=== PATIENT | male | born 1955 | race Caucasian/White ===

== ENCOUNTER 2016-08-30 16:17 | Emergency (ER) | payer OTHER ==
[2016-08-30] MEDS ORDERED: Clindamycin Phosphate 900 MG in Sodium Chloride 0.9% 100 ML IV ONE (16:35)
[2016-08-30] MEDS ORDERED: Iopamidol 612 MG/ML 100 ML Bottle IVPUSH ONE (16:35)
[2016-08-30] MEDS ORDERED: Sodium Chloride 0.9% 1,000 ML IV ONE (16:35)
[2016-08-30] MEDS ORDERED: Dexamethasone 4 MG/ML SDV IVPUSH ONE (16:37)
[2016-08-30] MEDS: Sodium Chloride 0.9% 10 ML Syringe FLUSH PRN ×2 (16:49→17:06)
--- NOTE | 2016-08-30 16:55 | EDM.PDOC ---
ED HPI GENERAL MEDICAL PROBLEM - General Chief Complaint: ENT Problem Stated Complaint: SENT BY [facility] Time Seen by Provider: 08/30/16 16:33 Source of Information: Reports: Patient History Limitations: Reports: No Limitations - History of Present Illness INITIAL COMMENTS - FREE TEXT/NARRATIVE: The patient is a 61-year-old male who presents with swelling in the neck/mouth area, just under the chin. He states that he had a dental procedure a few days ago. He didn't have trouble after this. However today he's had worsening swelling in his neck area right underneath his chin. This is quite uncomfortable. He doesn't have any definite pain or difficulty with swallowing or swelling inside the mouth or the throat. No fever. No history of similar symptoms. No additional complaint. No difficulty breathing at this time. - Related Data Allergies Allergy/AdvReac Type Severity Reaction Status Date / Time No Known Allergies Allergy Verified 08/30/16 16:25 Home Meds: Home Meds Amoxicillin. 08/30/16 [History] Past Medical History - Past Surgical History Musculoskeletal Surgical History: Reports: Other (See Below) Other Musculoskeletal Surgeries/Procedures:: pLate in left leg Social & Family History - Family History Family Medical History: Noncontributory - Tobacco Use Smoking Status *Q: Current Some Day Smoker Years of Tobacco use: 10 Packs/Tins Daily: 0.1 - Caffeine Use Caffeine Use: Reports: None - Recreational Drug Use Recreational Drug Use: No ED ROS ENT - Review of Systems Review Of Systems: See Below Constitutional: Denies: Fever HEENT: Reports: Other (neck swelling) Respiratory: Denies: Cough Cardiovascular: Denies: Chest Pain GI/Abdominal: Denies: Vomiting Musculoskeletal: Reports: Neck Pain Skin: Reports: No Symptoms Neurological: Reports: No Symptoms ED EXAM, ENT - Physical Exam Exam: See Below Exam Limited By: No Limitations General Appearance: Alert, WD/WN, No Apparent Distress Eye Exam: Bilateral Eye: Normal Inspection Ears: Normal External Exam Nose: Normal Inspection Mouth/Throat: Other (Marked fullness/tenderness in submandibular area, skin intact, slightly boggy). No: Dental Abcess, Gum Swelling, Peritonsillar Mass, Throat Swelling, Tonsillar Erythema Head: Atraumatic, Normocephalic Neck: Supple, Full Range of Motion, Other (marked fullness/TTP in submandibular area) Respiratory/Chest: No Respiratory Distress, Lungs Clear, Normal Breath Sounds, No Accessory Muscle Use Cardiovascular: Normal Peripheral Pulses, Regular Rate, Rhythm, No Murmur GI/Abdominal: Soft, Non-Tender Neurological: Alert, Oriented, Normal Cognition, No Motor/Sensory Deficits Psychiatric: Normal Affect, Normal Mood Skin: Warm, Dry, Intact, Normal Color, No Rash Course - Vital Signs Last Recorded V/S: Last Vital Signs Temp 37.1 C 08/30/16 19:23 Pulse 97 08/30/16 19:23 Resp 18 08/30/16 19:23 BP 144/74 H 08/30/16 19:23 Pulse Ox 97 08/30/16 19:23 - Orders/Labs/Meds Orders: Active Orders 24 hr Category Date Time Status CULTURE BLOOD [BC] Stat Lab 08/30/16 17:14 Received CULTURE BLOOD [BC] Stat Lab 08/30/16 17:25 Received Blood Culture x2 Reflex Set [OM.PC] Stat Oth 08/30/16 16:36 Ordered Labs: Laboratory Tests 08/30/16 08/30/16 Range/Units 16:31 16:31 WBC 22.31 H (4.23-9.07) K/mm3 RBC 4.67 (4.63-6.08) M/mm3 Hgb 14.6 (13.7-17.5) gm/L Hct 43.1 (40.1-51.0) % MCV 92.3 H (79.0-92.2) fl MCH 31.3 (25.7-32.2) pg MCHC 33.9 (32.2-35.5) g/dl RDW Std Deviation 45.2 H (35.1-43.9) fL Plt Count 252 (163-337) K/mm3 MPV 9.5 (9.4-12.3) fl Neut % (Auto) 86.5 H (34.0-67.9) % Lymph % (Auto) 4.9 L (21.8-53.1) % Teller % (Auto) 8.1 (5.3-12.2) % Eos % (Auto) 0.1 L (0.8-7.0) Baso % (Auto) 0.1 (0.1-1.2) % Neut # (Auto) 19.29 H (1.78-5.38) K/mm3 Lymph # (Auto) 1.09 L (1.32-3.57) K/mm3 Teller # (Auto) 1.80 H (0.30-0.82) K/mm3 Eos # (Auto) 0.03 L (0.04-0.54) K/mm3 Baso # (Auto) 0.03 (0.01-0.08) K/mm3 Manual Slide Review Abnormal smear Sodium 137 (136-145) mEq/L Potassium 3.8 (3.5-5.1) mEq/L Chloride 103 (98-107) mEq/L Carbon Dioxide 27 (21-32) mEq/L Anion Gap 10.8 (5-15) BUN 15 (7-18) mg/dL Creatinine 1.3 (0.7-1.3) mg/dL Est Cr Clr Drug Dosing 65.50 mL/min Estimated GFR (MDRD) 56 (>60) mL/min BUN/Creatinine Ratio 11.5 L (14-18) Glucose 117 H (80-115) mg/dL Calcium 9.0 (8.5-10.1) mg/dL Total Bilirubin 0.9 (0.2-1.0) mg/dL AST 27 (15-37) U/L ALT 37 (16-63) U/L Alkaline Phosphatase 136 H (46-116) U/L Total Protein 7.7 (6.4-8.2) g/dl Albumin 4.0 (3.4-5.0) g/dl Globulin 3.7 gm/dL Albumin/Globulin Ratio 1.1 (1-2) Meds: Medications Discontinued Medications Generic Name Dose Route Start Last Admin Trade Name Freq PRN Reason Stop Dose Admin Dexamethasone 10 mg 08/30/16 16:37 08/30/16 17:10 Dexamethasone IVPUSH 08/30/16 16:38 10 mg ONETIME ONE Administration Clindamycin Phosphate 900 mg/ 106 mls @ 100 mls/hr 08/30/16 16:35 08/30/16 17 :02 Sodium Chloride IV 08/30/16 17:38 100 mls/hr ONETIME ONE Administration Sodium Chloride 1,000 mls @ 1,000 mls/hr 08/30/16 16:35 08/30/16 17:05 Normal Saline IV 08/30/16 17:34 1,000 mls/hr ONETIME ONE Administration Ampicillin Sodium/Sulbactam 100 mls @ 200 mls/hr 08/30/16 17:17 08/30/16 17: 41 Sodium 3 gm/ Sodium Chloride IV 08/30/16 17:46 200 mls/hr ONETIME ONE Administration Iopamidol 80 ml 08/30/16 16:35 08/30/16 16:48 Isovue-300 (61%) IVPUSH 08/30/16 16:36 80 ml ONETIME ONE Administration Sodium Chloride 10 ml 08/30/16 16:35 08/30/16 17:06 Saline Flush FLUSH 10 ml ONETIME PRN Administration IV FLUSH - Re-Assessments/Exams Free Text/Narrative Re-Assessment/Exam: 08/30/16 17:58 CT scan of the neck shows prominent soft tissue findings below the chin including an area of 5 cm x 2.5 cm x 3.5 cm of mass versus infection, slightly prominent lymph nodes within the right neck. Patient was given clindamycin and Unasyn. His airway is currently intact, he is able to speak and swallow, his CT scan of the neck doesn't currently show findings suggestive of deep or neck infection. However this is a potentially serious neck infection that may require ENT intervention. Discussed with Dr. Nowak, ENT at [facility] who agrees with need to transfer and will eval pt as needed once he arrives to the ED. Discussed with Dr. Cruz, ED, who accepts the patient for transfer. Departure - Departure Time of Disposition: 19:00 Disposition: DC/Tfer to [facility] 02 Clinical Impression: Submandibular abscess - Discharge Information Referrals: Vipin Wei MD [Primary Care Provider] - Forms: ED Department Discharge - My Orders Last 24 Hours: My Active Orders 08/30/16 16:36 Blood Culture x2 Reflex Set [OM.PC] Stat 08/30/16 17:14 CULTURE BLOOD [BC] Stat 08/30/16 17:25 CULTURE BLOOD [BC] Stat - Assessment/Plan Last 24 Hours: My Active Orders 08/30/16 16:36 Blood Culture x2 Reflex Set [OM.PC] Stat 08/30/16 17:14 CULTURE BLOOD [BC] Stat 08/30/16 17:25 CULTURE BLOOD [BC] Stat
[2016-08-30] MEDS ORDERED: Ampicillin/Sulbactam Na 3 GM in Sodium Chloride 0.9% 100 ML IV ONE (17:17)
--- NOTE | 2016-08-30 17:24 | CT ---
CT neck Technique: Multiple axial sections were obtained from above the external auditory canals inferiorly to the lung apices. Intravenous contrast was utilized. Comparison: No previous study. Findings: Soft tissue density is seen below the chin. This presumably is inflammatory as there is thickening of the adjacent muscles. Difficult to completely exclude a soft tissue mass measuring 5.0 cm x 2.5 cm x 3.5 cm. Slightly prominent lymph nodes are seen within the right neck. Visualized lung apices shows nothing acute. Thyroid gland shows symmetric enhancement. Submandibular and parotid salivary glands are within normal limits. Visualized sinuses are clear. Epiglottis is normal. No prevertebral soft tissue swelling is seen. Slightly prominent density is seen within the right inferior parapharyngeal region at the level of the epiglottis presumably due to adjacent soft tissue swelling. Impression: 1. Prominent soft tissue finding below the chin. This presumably is inflammatory but difficult to exclude mass. Slightly prominent lower parapharyngeal soft tissues at the level of the epiglottis presumably due to additional inflammatory change. 2. Several slightly prominent right-sided lymph nodes are seen. Note: Recommend patient be treated as an infection and make sure findings resolve and do not represent neoplasm. If antibiotics seem to be successful, repeat CT could be considered 4 weeks after antibiotic therapy is completely make sure findings resolve. Diagnostic code #9
[2016-08-30 19:28] VITALS: BP 144/74
== END 2016-08-30 19:10 ==
LOC: JD.ED 16:17
DX: K12.2 Cellulitis and abscess of mouth (principal); F17.210 Nicotine dependence, cigarettes, uncomplicated; Z98.890 Other specified postprocedural states
CPT/HCPCS: 36415; 70491; 80053; 85025; 87040; 96361; 96365; 96375; 99285; J0295; J1100; J7030; J7040; J7050; Q9967; 99284

== ENCOUNTER 2023-10-06 06:14 | Emergency (ER) | payer MEDICARE, OTHER ==
[2023-10-06] MEDS: cefTRIAXone 1 GM, Lidocaine 1% 2.1 ML IM ONE (06:38)
[2023-10-06 06:47] VITALS: BP 142/85; PULSE 80
== END 2023-10-06 06:45 | disposition home or self-care (01) ==
LOC: JD.ED 06:14
DX: S02.5XXA Fracture of tooth (traumatic), initial encounter for closed fracture (principal); K02.9 Dental caries, unspecified; F17.290 Nicotine dependence, other tobacco product, uncomplicated; Z79.899 Other long term (current) drug therapy; X58.XXXA Exposure to other specified factors, initial encounter
CPT/HCPCS: 96372; 99282; J0696; 99283; J3490